=== PATIENT | male | born 1970 | race Caucasian/White ===

== ENCOUNTER 2025-11-07 19:11 | Emergency (ER) | payer SELFPAY ==
[~2025-11-07] VITALS: Ht 167.6 cm; Wt 56.7 kg
[2025-11-07] MEDS ORDERED: NAPROSYN500 MG PO (22:18)
[2025-11-07] MEDS ORDERED: Acetaminophen/Oxycodone 5 MG/325 MG TABLET PO ONE (22:20)
== END 2025-11-07 21:04 | disposition home or self-care (01) ==
LOC: ED 19:11
DX: S50.02XA Contusion of left elbow, initial encounter (principal); W00.0XXA Fall on same level due to ice and snow, initial encounter; Y93.89 Activity, other specified; Y92.89 Other specified places as the place of occurrence of the external cause; Y99.8 Other external cause status